=== PATIENT | male | born 1970 | race Caucasian/White ===

== ENCOUNTER 2020-12-20 11:24 | Emergency (ER) | payer OTHER, SELFPAY ==
[2020-12-20 11:33] VITALS: BP 111/74; PULSE 107; RESP 18; TEMP 36.9; O2SAT 98
--- NOTE | 2020-12-20 11:38 | ED.GENADULT ---
HPI - General Adult General Chief complaint: Nausea/Vomiting/Diarrhea Stated complaint: vomiting/fever/diarrhea Time Seen by Provider: 12/20/20 11:40 Source: patient and RN notes reviewed Mode of arrival: ambulatory Limitations: no limitations History of Present Illness HPI narrative: 50-year-old male presents to the [facility] the [facility] with complaints of fever, vomiting, diarrhea and elevated heart rate since last night. reports that fitbit read his HR 108 to 120's over night. reports a fever of 101. Has only taken pepto for the nausea and diarrhea. NO other treatment. Patient reports he is vaccined for covid. Denies abdominal pain, chest pain or SOB. Related Data Home Medications Medication Instructions Recorded Confirmed citalopram 10 mg PO DAILY 12/20/20 12/20/20 Allergies Allergy/AdvReac Type Severity Reaction Status Date / Time zolpidem Allergy Severe narcolepsy Verified 12/20/20 11:51 Review of Systems Review of Systems: All systems reviewed & are unremarkable except as noted in HPI and below Constitutional: Constitutional: Reports as per HPI and Reports fever(s) Eyes: Eyes: Reports no additional eye complaints ENT: Reports system reviewed and no additional complaints, except as documented and Denies sore throat Cardiovascular: Cardiovascular: Reports no additional cardiovascular complaints and Denies chest pain Respiratory: Respiratory: Reports no additional respiratory complaints, Denies cough and Denies dyspnea Gastrointestinal: Gastrointestinal: Reports as per HPI, Denies abdominal pain, Denies constipation, Reports diarrhea, Reports nausea and Reports vomiting Genitourinary: Genitourinary: Reports no additional male genitourinary complaints Musculoskeletal: Musculoskeletal: Reports no additional musculoskeletal complaints Integumentary/Breasts: Skin/Breast: Reports system reviewed and no additional complaints, except as docu Neurologic: Reports system reviewed and no additional complaints, except as documented Psychiatric: Psychiatric: Reports no additional psychiatric complaints Allergic/Immunologic: Allergic/Immunologic: Reports no additional allergic/immunologic complaints [facility] Past Medical History Medical History (Updated 12/20/20 @ 15:44 by Shamika Barnett) Depression with anxiety Family History Family History (Updated 12/20/20 @ 15:45 by Shamika Barnett) Father Patient's father is Mother Cancer Social History Social History Smoking status: Never smoker Second hand tobacco smoke exposure: No Alcohol intake: current Substance use: never Comments At the time of my signature, I reviewed and agree with the nursing past medical, surgical, social, and family history. There is no relevant family history pertinent to the patient complaint. Exam Const: General: healthy appearing, no acute distress and alert Nutritional Appearance: well nourished Orientation/consciousness: patient oriented x3 Limitations: no limitations HENMT: Head: normal to inspection Ears: external ears normal, TM's normal bilaterally and EAC's normal Eyes: Conjunctivae: conjunctivae normal Pupils: Equal, round and reactive pupils present Neck: Neck: normal visual inspection, no lymphadenopathy and no meningeal signs Chest: Chest palpation & inspection: normal inspection of the chest Resp: Effort & Inspection: normal respiratory effort and no use of accessory muscles Auscultation: clear to auscultation bilaterally, no crackles, no rales, no rhonchi and no wheezes Cardio: Rate: regular rate Rhythm: regular rhythm GI: Inspection: non-distended GI Palp: Yes Soft to palpation, No Tenderness to palpation present (GI), No Guarding due to palpation present (GI) and No Rebound tenderness present Auscultation: normal bowel sounds : General: Yes no CVA tenderness Back/Spine/Pelvis: Back: no CVA tenderness Skin: General skin exam: n
== END 2020-12-20 12:00 | disposition home or self-care (01) ==
PROVIDERS: Emergency Provider Nurse Practitioner; PCP Internal Medicine
DX: R11.2 Nausea with vomiting, unspecified (principal); R19.7 Diarrhea, unspecified
CPT/HCPCS: 99213; G0463

== ENCOUNTER → 2021-01-27 01:53 | Outpatient (CLI) | payer OTHER, SELFPAY ==
[2021-01-27 18:23] LABS: SARS-CoV-2 RNA PCR Negative
== END ==
PROVIDERS: Nurse Practitioner; PCP Internal Medicine; Visit Provider Physician Assistant
DX: Z20.822 Contact with and (suspected) exposure to COVID-19 (principal)
CPT/HCPCS: C9803; U0003; U0005

== ENCOUNTER 2022-09-08 07:50 | Outpatient (CLI) | payer OTHER, SELFPAY | END 2022-09-08 07:51 | disposition home or self-care (01) | LOC: ANHSURGERY 07:54 | PROVIDERS: PCP Internal Medicine; Visit Provider Surgery | DX: Z01.812 Encounter for preprocedural laboratory examination (principal); K40.90 Unilateral inguinal hernia, without obstruction or gangrene, not specified as recurrent | CPT/HCPCS: 36415; 86850; 86900; 86901 ==

== ENCOUNTER 2022-09-14 00:38 | Day surgery (SDC) | payer OTHER, SELFPAY ==
[2022-09-07 15:42] VITALS: BMI 35.2
--- NOTE | 2022-09-07 15:47 | SUR.PREOP ---
Report to the Outpatient Waiting Room, entrance under the green pavilion located off [address], at time 1000 on date 09/14/22. Planned Procedure Time: 1200. Time changes happen often and if your time is changed the preop area will call you the afternoon before. - You and your visitor will be asked to self-screen and do not enter if you have any COVID symptoms. - A mask is optional within the hospital at this time. Patients may have clear liquids (water, carbonated beverages, clear teas, apple juice) until 3 hours prior to surgery with a maximum of 20 ounces. - No food from midnight until time of surgery BEFORE 0900 AM - Infants may have breast milk until 4 hours before surgery, infant formula 6 hours prior to surgery. - Children will be allowed to drink immediately following surgery. If applicable, please bring a bottle or sippy cup to assist with drinking. Juice, water, soda, and popsicles are readily available. For infants on formula, please bring formula the day of surgery. Pacifiers are allowed. Take the following medications with a SIP of water the morning of surgery: CITALOPRAM DO NOT STOP ANY OF YOUR OTHER PRESCRIPTION MEDICATIONS PRIOR TO SURGERY ?EXCEPT THE FOLLOWING Medications to discontinue per physician ___ALINA DAY OF SURGERY Date to take last dose Please no make-up, nail yoruba, hairspray, perfume, deodorant, or body powder the day of surgery. No jewelry (including any body piercings) or valuables the day of surgery, leave them at home. Please take a shower or bath the night before, or the morning of, surgery with an antibacterial soap. Wear comfortable, loose fitting clothing. Children are encouraged to wear pajamas. USE HIBLICLENS MORNING OF SURGERY. FOLLOW DIRECTED - Jewelry must be removed prior to entering the operating room. Rings and piercings that are not removed may be cut off. - The hospital will not accept responsibility for valuables. - Please leave all valuables, including medications, at home the day of surgery. If you are going home after surgery, a licensed pile driver must drive you home. - NO public transportation without another adult if you receive anesthesia. - We recommend that an adult stay with you for 24 hours following discharge. - We also recommend that you do not drive, make important decision, drink alcoholic beverages, or take any drugs that were not prescribed by your health care provider for at least 24 hours after your discharge time. For Pediatric surgeries, we recommend two adults accompany the child home. Follow any additional instructions given to you from your surgeon. If you or anyone in your household have experienced Covid symptoms in the past week, please notify your surgeon or the nurse liaison at the phone number below for possible testing. Telephone instructions given to _PATIENT_and asked if any additional questions and then verbalized understanding. Patient advised to call surgeon office or pre surgery nurse liaison [phone] if any additional questions.
[2022-09-14] VITALS (9 sets, daily range): BP systolic 97–137; BP diastolic 50–81; PULSE 74–101; RESP 15–20; TEMP 36.4–36.5; O2SAT 92–97; BMI 35.9
--- NOTE | 2022-09-14 08:34 | WPDANESEPPF ---
Anes - Initial Pre Proc Eval Procedure: Operation Date: 09/14/22 12:00 Proposed Procedures p Robotic Assisted Laparoscopic Right Inguinal Hernia Repair with Mesh, Possible Left Inguinal Hernia Repair, Possible Open - Anthony De León MD Date/Time: 09/14/22 08:34 Surgeon: Anthony De León MD Pre Op Diagnosis: reduceable right inguinal hernia Patient Data Age: 51 Gender: M Height: 1.7 m Weight: 102.06 kg Allergies Allergy/AdvReac Type Severity Reaction Status Date / Time zolpidem Allergy Severe narcolepsy Verified 09/14/22 11:23 Home Medications Medication Instructions Recorded Confirmed Type citalopram 20 mg tablet 20 mg PO DAILY #90 tabs 07/02/22 09/14/22 Rx fexofenadine 60 mg capsule 60 mg PO DAILY 09/07/22 09/07/22 History Patient hx anesthesia problems: none Family hx anesthesia problems: none Results Review: All pre-operative results and documents have been reviewed as part of the pre-operative evaluation. [facility] Past Medical History Medical History (Updated 09/14/22 @ 08:35 by David Kenyon DO) Anxiety Bronchitis Depression with anxiety High cholesterol Irregular heart beat Surgical History Surgical History S/P wisdom tooth extraction early Family History Family History Father Patient's father is Mother Cancer Unknown Diabetes mellitus Cancer Social History Social History Smoking status: Never smoker Second hand tobacco smoke exposure: No Alcohol intake: current Substance use: never Living arrangements: with family Spiritual care concerns: No Anes - Eval Final PreProcedure Day of Procedure 09/14/22 08:34 Patient weight: obese Heart: regular rate and rhythm Lungs: clear to auscultation Airway: Mallampati scale class II Neurological: alert and oriented Last oral intake: >/= 8 hours ASA classification: II Emergent: no Anesthetic plan: proceed Anesthesia type and monitoring: general ETT and standard monitoring Results Review: All pre-operative results and documents have been reviewed as part of the pre-operative evaluation. Informed Consent: The patient's anesthetic plan and its attendant risks and benefits were discussed with the patient/family/POA. Questions were solicited and answers provided to the satisfaction of the patient/family/POA.
[2022-09-14] MEDS: LACTATED RINGERS 1,000 ML 30 ML IV CONT ×2 (11:43→18:17)
[2022-09-14] MEDS: KETOROLAC 15 MG/ML VIAL (*BKC) IV PUSH (11:51)
[2022-09-14] MEDS: ACETAMINOPHEN 500 MG TABLET 1000 MG PO (11:51)
--- NOTE | 2022-09-14 12:47 | PM.IMHP ---
H&P: HPI History of Present Illness Date/Time: 09/14/22 12:47 Chief Complaint: Right inguinal hernia Narrative: HPI Hernia denies chills or fever(s) HPI Comments Details: Ruperto is a 51 y/o male who presents to the office at the request of Dr. Bennett for evaluation of a right groin bulge. He states he first noticed this about two years ago after lifting a water heater. He states he recently had a cold and noticed more discomfort after coughing. He states the bulge is not very noticeable after laying down. He denies any difficulty with urination. ? PFSH Medical History? Bronchitis Depression with anxiety High cholesterol Surgical History? S/P wisdom tooth extraction early Family History? Father?? Patient's father is deceasedMother CancerUnknown Diabetes mellitus Cancer Social History? Smoking status:? Never smoker Second hand tobacco smoke exposure:? No Alcohol intake:? current Substance use:? never Intake Vital Signs ? 07/20/2308:28 Height 1.7 m Height (Inches) 67 Weight 107.218 kg Weight (Lbs) 236 lbs., 6 oz. BMI 37.0 BP 154/94 H Blood Pressure Location Lt brachial Position Sitting Respiration 16 Pulse 66 Pulse Source Monitor Temp 36.7 C Temp Source Tympanic Pulse Oximetry (%) 99 Oxygen Delivery Method Room Air Visit Reasons:?Hernia Allergies/Adverse Reactions zolpidem Allergy (Severe, Verified 07/20/22 09:28) narcolepsy Preferred laboratory: [facility] Pre-Planning preparation?: Yes Review of Systems Const All systems reviewed & are unremarkable except as noted in HPI and below Denies chills, Denies fever(s), Denies headache(s) and Denies weight loss Eyes Denies change in vision and Denies loss of vision ENT Reports Normal hearing present, Denies headache(s), Reports nasal discharge, Denies neck pain and Denies throat swelling Card Denies chest pain and Denies dyspnea Resp Denies cough, Denies dyspnea and Denies wheezing GI Reports abdominal pain Denies hematuria Musc Denies arthralgias, Denies joint swelling and Denies neck pain Neuro Reports Normal hearing present, Denies headache(s) and Denies loss of vision Psych Reports anxiety Aller/ Immun Denies throat swelling, Denies wheezing and Reports other (seasonal allergies) Exam Exam Const General: no acute distress and alert Orientation/Consciousness: oriented to person, oriented to place, oriented to time and patient oriented x3 [facility] Head: normocephalic and atraumatic Ears: hearing grossly normal bilaterally Face/Nose/Sinus: Normal external nose present Mouth: Normal oral and palatal mucosa present, moist mucous membranes and posterior oropharynx normal Eyes Conjunctivae/Sclera: Yes conjunctivae normal and Yes sclerae normal Pupils: Yes Equal, round and reactive pupils present EOM: EOMs intact bilaterally Neck General: Yes no JVD Lymphatic: no lymphadenopathy noted Chest Palpation/Inspection: normal inspection of the chest Resp Effort/Inspection: normal respiratory effort Auscultation: clear to auscultation bilaterally Percussion: percussion normal Cardio Rate: Yes regular rate Rhythm: regular rhythm Heart Sounds: Yes S1 normal heart sound present and Yes S2 normal heart sound present Peripheral Pulses: Peripheral pulses 2+ throughout GI Inspection: normal to inspection Auscultation: normal bowel sounds Palpation/Percussion: Yes non-tender, Yes no guarding, No Rebound tenderness present and Yes normal to percussion General: Yes normal external exam Penis: normal penis Scrotum: scrotum normal Testes: Testes normal Other: Moderate sized right inguinal hernia. Reducible. No left inguinal hernia. Skin General: normal color Neuro General: Yes oriented to person, Yes oriented to place and Yes oriente
--- NOTE | 2022-09-14 12:49 | WPDHPUPDATE1 ---
History and Physical Update Update Date/Time: 09/14/22 12:49 History and Physical has been reviewed, including an updated exam of the patient. There are NO changes in the patient's condition. Risks, benefits, and alternatives have been discussed and questions answered. Patient agrees to proceed with procedure.
[2022-09-14] MEDS: ceFAZolin 2 GM/D5W 50 ML 2 GM/50 ML BAG IVPB (13:35)
[2022-09-14] MEDS: BUPivacaine HCL 0.5% 10 ML AMP 20 ML INFILTRATE (14:10)
[2022-09-14] MEDS: LIDO 1%/EPINEPHRINE 1:100,000 50 ML VIAL 20 ML INFILTRATE (14:11)
--- NOTE | 2022-09-14 16:11 | W.PM.PROC2 ---
Procedure Note - Detailed Date of Procedure 09/14/22 Pre-op Diagnosis Reduceable right inguinal hernia Post-op Diagnosis Other (Reducible direct right inguinal hernia) Procedure Performed Robotic assisted laparoscopic right inguinal hernia repair with Bard 3D mid weight mesh Surgeon Anthony De León MD Job Estimator PIYUSH Vuong Anesthesia General Indications Patient is a 51-year-old gentleman who complained of having a bulge in the right groin region. It was painful. On examination a reducible right inguinal hernia presents now for robotic assisted laparoscopic right inguinal hernia repair with mesh. Findings Moderate-sized direct right inguinal defect containing preperitoneal fat. Description of Procedure After informed consent was obtained patient brought to the operating room was placed supine position and then general endotracheal anesthesia was administered. The bilateral abdomen and groins were then prepped and draped in usual sterile fashion. A time-out was then performed correctly identifying the patient as well as procedure to be performed. He was given perioperative IV antibiotics. I entered the abdomen left upper quadrant utilizing a 10mm Optiview port. Once inside the abdomen insufflated to adequate pneumoperitoneum of 15 mmHg of CO2. I then visualized the bilateral groin regions and there was no evidence of a left inguinal hernia. On the right side there is a direct defect containing what appeared to be some preperitoneal fat. I then placed additional trocar ports across the mid abdomen. This is done under direct visualization. The Tha robot was then brought to the patient's bedside the robotic arms were docked to the robotic ports. Robotic instruments advanced into the abdomen under direct visualization and I scrubbed out the procedure sat down the robotic console to perform the dissection robotically. I started my preperitoneal flap laterally anterior medial to the right anterior superior iliac spine and brought across the lower abdomen across the right median umbilical ligament. Dissection was carried in this preperitoneal space distally until I reached the internal ring laterally and medially when I encountered the pubic tubercle on the right. I identified the inferior epigastric vessels and reduced the preperitoneal fat and peritoneum out of the direct defect utilizing robotic hook cautery. Once this was done I then further dissected the peritoneal flap proximally up onto the psoas muscle. The vas deferens and testicular vessels in the cord were dissected out circumferentially without injury. Was a small cord lipoma which was dissected free the other cord structures and resected and removed from the abdomen. At this point I then closed the direct defect utilizing a 2-0 absorbable V lock suture. Then measured the space and chose a 17cm in length by 12cm in width extra large piece of Bard mid weight mesh oriented for the right side. Is placed into the abdomen and spread out in the dissected space covering both the direct and indirect spaces as well as the femoral space. I dissected below the pubic tubercle into the space the rectus were couple cm in the edge of the mesh was placed down in the space of Retzius. Mesh laid out very nicely without any tension. I then secured the mesh to tissues around the pubic tubercle utilizing 2-0 Vicryl suture. Laterally was secured to the muscle anterior medial to the right anterior suprailiac spine. Was then secured also to the area where the direct defect was closed with a 2-0 Vicryl suture. I then proceeded to close the peritoneal flap utilizing a running 2-0 absorbable V lock suture. This excluded the mesh from the intra-abdominal viscera. A small hole in the peritoneum was then closed utilizing 2-0 Vicryl suture placed in a figure-eight fashion. I then checked and there was no evidence of any bowel injury. There is no bleeding. I then had the it robotic instruments removed from the abdom
[2022-09-14] MEDS: oxyCODONE HCL (*CRX) 5 MG TAB IR PO (17:37)
[2022-09-14] MEDS: ONDANSETRON INJ 4 MG/2 ML VIAL IV PUSH (17:39)
--- NOTE | 2022-09-14 17:44 | SUR.PHASEII ---
PT VOMITED 2 MIN AFTER TAKING OXYCODONE. PT SAID HE HAS NEVER HAD OXYCODONE BEFORE THAT HE KNOWS OF
== END 2022-09-14 18:51 | disposition home or self-care (01) ==
PROVIDERS: PCP Internal Medicine; Visit Provider Surgery
PROC: 8E0Y4CZ Robotic Assisted Procedure of Lower Extremity, Percutaneous Endoscopic Approach (ICD-10-PCS; CPT 49650; principal; 2022-09-14 12:00)
DX: K40.90 Unilateral inguinal hernia, without obstruction or gangrene, not specified as recurrent (principal); F41.8 Other specified anxiety disorders; E66.9 Obesity, unspecified; Z68.35 Body mass index [BMI] 35.0-35.9, adult
CPT/HCPCS: 49650; S2900; 36415; 86850; 86900; 86901; A9270; C1781; J0690; J1100; J1170; J1885; J2250; J2405; J2704; J3010; J7030; J7120

== ENCOUNTER 2022-10-14 00:46 | Day surgery (SDC) | payer OTHER, SELFPAY ==
[2022-10-01 10:30] VITALS: BMI 35.3
--- NOTE | 2022-10-13 13:39 | PM.HPGS ---
History of Present Illness History of Present Illness Consent: Risks, benefits, and alternatives have been discussed and questions answered. Patient agrees to proceed with procedure. Chief complaint: neoplasm screening Narrative: Ruperto Pickett is a 51 year old male referred for colon cancer screening. Review of Systems Review of Systems: All systems reviewed & are unremarkable except as noted in HPI and below PMFSH Past Medical History Medical History Anxiety Bronchitis Depression with anxiety High cholesterol Irregular heart beat Surgical History Surgical History H/O inguinal hernia repair robotic assisted laparoscopic RIH re w/ mesh, poss LIH re, poss open 09/07/22 S/P wisdom tooth extraction early Family History Family History Father Patient's father is Mother Cancer Unknown Diabetes mellitus Cancer Social History Social History Smoking status: Never smoker Second hand tobacco smoke exposure: No Alcohol intake: current Drinks per week: 1 Substance use: never Substance use type: does not use Living arrangements: with family Spiritual care concerns: No Meds Home Medications and Allergies Home Medications Medication Instructions Recorded Confirmed Type citalopram 20 mg tablet 20 mg PO DAILY #90 tabs 07/02/22 10/01/22 Rx fexofenadine 60 mg capsule 60 mg PO DAILY 09/07/22 10/01/22 History Allergies Allergy/AdvReac Type Severity Reaction Status Date / Time zolpidem Allergy Severe narcolepsy Verified 10/14/22 06:23 Exam Resp: Auscultation: clear to auscultation bilaterally Cardio: Rate: regular rate Rhythm: regular rhythm GI: GI Palp: Yes Soft to palpation and No Tenderness to palpation present (GI) Assessment and Plan Assessment and plan (1) Colon cancer screening: Code(s): Z12.11 - Encounter for screening for malignant neoplasm of colon Status: Acute Assessment and Plan: Colonoscopy with possible biopsy or polypectomy or cautery or injection of substances.
[2022-10-14 06:25] VITALS: BP 119/75; PULSE 79; RESP 18; TEMP 36.2; O2SAT 98
[2022-10-14] MEDS: LACTATED RINGERS 1,000 ML 150 ML IV CONT (06:38)
--- NOTE | 2022-10-14 07:13 | WPDANESEPPF ---
Anes - Initial Pre Proc Eval Procedure: Operation Date: 10/14/22 07:30 Proposed Procedures p Screening Colonoscopy - Feroz Jacques MD Date/Time: 10/14/22 07:13 Surgeon: Feroz Jacques MD Pre Op Diagnosis: neoplasm screening Patient Data Age: 51 Gender: M Height: 1.7 m Weight: 103.1 kg Last Vital Signs Temp 97.1 F L 10/14/22 06:25 Pulse 79 10/14/22 06:25 Resp 18 10/14/22 06:25 BP 119/75 10/14/22 06:25 Pulse Ox 98 10/14/22 06:25 O2 Del Method Room Air 10/14/22 06:25 Allergies Allergy/AdvReac Type Severity Reaction Status Date / Time zolpidem Allergy Severe narcolepsy Verified 10/14/22 06:23 Home Medications Medication Instructions Recorded Confirmed Type citalopram 20 mg tablet 20 mg PO DAILY #90 tabs 07/02/22 10/01/22 Rx fexofenadine 60 mg capsule 60 mg PO DAILY 09/07/22 10/01/22 History Patient hx anesthesia problems: none Family hx anesthesia problems: none Results Review: All pre-operative results and documents have been reviewed as part of the pre-operative evaluation. [facility] Past Medical History Medical History Anxiety Bronchitis Depression with anxiety High cholesterol Irregular heart beat Surgical History Surgical History H/O inguinal hernia repair robotic assisted laparoscopic RIH re w/ mesh, poss LIH re, poss open 09/07/22 S/P wisdom tooth extraction early Family History Family History Father Patient's father is Mother Cancer Unknown Diabetes mellitus Cancer Social History Social History Smoking status: Never smoker Second hand tobacco smoke exposure: No Alcohol intake: current Drinks per week: 1 Substance use: never Substance use type: does not use Living arrangements: with family Spiritual care concerns: No Anes - Eval Final PreProcedure Day of Procedure 07/13/23 07:13 Patient weight: obese Heart: regular rate and rhythm Lungs: clear to auscultation Airway: Mallampati scale class II Neurological: alert and oriented Last oral intake: >/= 8 hours ASA classification: II Emergent: no Anesthetic plan: proceed Anesthesia type and monitoring: general GIVS and standard monitoring Results Review: All pre-operative results and documents have been reviewed as part of the pre-operative evaluation. Informed Consent: The patient's anesthetic plan and its attendant risks and benefits were discussed with the patient/family/POA. Questions were solicited and answers provided to the satisfaction of the patient/family/POA.
[2022-10-14 07:45] VITALS: BP 102/63; PULSE 70; RESP 14; O2SAT 94
[2022-10-14 07:55] VITALS: BP 127/86; PULSE 78; RESP 18; O2SAT 95
[2022-10-14 08:05] VITALS: BP 125/83; PULSE 72; RESP 18; O2SAT 94
== END 2022-10-14 08:12 | disposition home or self-care (01) ==
PROVIDERS: PCP Internal Medicine; Visit Provider Internal Medicine Gastroenterology
PROC: 0DJD8ZZ Inspection of Lower Intestinal Tract, Via Natural or Artificial Opening Endoscopic (ICD-10-PCS; CPT 45378; principal; 2022-10-14 07:30)
DX: Z12.11 Encounter for screening for malignant neoplasm of colon (principal); F41.8 Other specified anxiety disorders; E66.9 Obesity, unspecified; Z68.35 Body mass index [BMI] 35.0-35.9, adult
CPT/HCPCS: 45378; J2704; J7120

== ENCOUNTER 2023-06-08 15:00 | Outpatient (CLI) | payer OTHER, SELFPAY ==
--- NOTE | ~2023-06-08 | XR_ITS ---
EXAMINATION: XR shoulder LT min 2V DATE: 06/08/2023 15:14 INDICATION: Left shoulder pain. TECHNIQUE: 4 views of left shoulder were obtained. COMPARISON: None. FINDINGS: Bone alignment is normal. No fracture. Glenohumeral joint is normal. There is mild acromioc lavicular joint osteoarthritis. IMPRESSION: 1. Mild left acromioclavicular joint osteoarthritis. Reviewed, dictated and finalized at location E. ELL TESTER
== END 2023-06-08 15:01 | disposition home or self-care (01) ==
PROVIDERS: PCP Internal Medicine; Visit Provider Internal Medicine
DX: M25.512 Pain in left shoulder (principal); M19.012 Primary osteoarthritis, left shoulder
CPT/HCPCS: 73030

== ENCOUNTER 2023-08-09 08:46 | Outpatient (CLI) | payer OTHER, SELFPAY ==
--- NOTE | ~2023-08-09 | US_ITS ---
Limited Abdominal Sonogram: Real-time sonographic imaging of the right upper quadrant was performed. Clinical History: Abdominal pain Findings: The liver appears normal with no evidence of mass lesion or bile duct dilatation. Main por juan vein demonstrates normal direction of flow. The gallbladder is well distended, and demonstrates a 9 mm gallstone. No gallbladder wall thickening evident. The common bile duct measures 5 mm. The vis ualized pancreas, aorta, and IVC are unremarkable. Impression: Cholelithiasis. Reviewed, dictated and finalized at location M. Impression: Cholelithiasis.
== END 2023-08-09 08:47 | disposition home or self-care (01) ==
LOC: ANHIMG 08:47
PROVIDERS: PCP Internal Medicine; Visit Provider Physician Assistant
DX: K80.20 Calculus of gallbladder without cholecystitis without obstruction (principal)
CPT/HCPCS: 76705

== ENCOUNTER 2023-09-09 07:58 | Outpatient (CLI) | payer OTHER, SELFPAY ==
--- NOTE | 2023-09-09 08:08 | ECG_ITS ---
[facility] [address] Test Date: 2023-09-09 Pat Name: Ruperto Pickett Department: Room: Gender: Kitchen And Counter Worker: : 1970 Requested By: David Higgins Order Number: [id number] Yordy MD: Yunior Parish M.D. Measurements Intervals [place] Rate: 71 P: 17 OH: 155 QRS: 10 QRSD: 90 T: 11 QT: 369 QTc: 404 Interpretive Statements SINUS RHYTHM NORMAL ELECTROCARDIOGRAM No previous ECG available for comparison Electronically Signed On 09-09-2023 09:12:50 CDT by Yunior Parish M.D.
[2023-09-09 11:37] LABS: Alanine Aminotransferase 31 U/L (6-50); Albumin Level 4.3 g/dL (3.5-5.1); Alkaline Phosphatase 76 U/L (38-126); Amylase 152 U/L (30-110); Aspartate Amino Transferase 42 U/L (17-59); Bilirubin,Total 0.5 mg/dL (0.2-1.3); Lipase 339 U/L (23-300)
== END 2023-09-09 07:59 | disposition home or self-care (01) ==
LOC: ANHSURGERY 08:04
PROVIDERS: PCP Internal Medicine; Visit Provider Surgery
DX: K80.20 Calculus of gallbladder without cholecystitis without obstruction (principal); Z01.818 Encounter for other preprocedural examination
CPT/HCPCS: 36415; 80076; 82150; 83690; 86850; 86900; 86901; 93005

== ENCOUNTER 2023-09-14 00:40 | Day surgery (SDC) | payer OTHER, SELFPAY ==
[2023-09-05 14:06] VITALS: BMI 33.5
--- NOTE | 2023-09-05 14:12 | PC.NURSE ---
Report to the Outpatient Waiting Room, entrance under the green pavilion located off [facility], at time _0730_ on date _[id number]_. Planned Procedure Time: 0930_. Time changes happen often and if your time is changed the preop area will call you the afternoon before. - You and your visitor will be asked to self-screen and do not enter if you have any COVID symptoms. - A mask is optional within the hospital at this time. Patients may have clear liquids (water, carbonated beverages, clear teas, apple juice) until 3 hours prior to surgery with a maximum of 20 ounces. - No food from midnight until time of surgery Take the following medications with a SIP of water the morning of surgery: ___Citalopram DO NOT STOP ANY OF YOUR OTHER PRESCRIPTION MEDICATIONS PRIOR TO SURGERY ?EXCEPT THE FOLLOWING Medications to discontinue per physician Multivitamin Date to take last [id number]__[id number] Please no make-up, nail sami, hairspray, perfume, deodorant, or body powder the day of surgery. No jewelry (including any body piercings) or valuables the day of surgery, leave them at home. Please take a shower or bath the night before, or the morning of, surgery with an antibacterial soap. Wear comfortable, loose fitting clothing. - Jewelry must be removed prior to entering the operating room. Rings and piercings that are not removed may be cut off. - The hospital will not accept responsibility for valuables. - Please leave all valuables, including medications, at home the day of surgery. If you are going home after surgery, a licensed courtesy driver must drive you home. - NO public transportation without another adult if you receive anesthesia. - We recommend that an adult stay with you for 24 hours following discharge. - We also recommend that you do not drive, make important decision, drink alcoholic beverages, or take any drugs that were not prescribed by your health care provider for at least 24 hours after your discharge time. Follow any additional instructions given to you from your surgeon. If you or anyone in your household have experienced Covid symptoms in the past week, please notify your surgeon or the nurse liaison at the phone number below for possible testing. Telephone instructions given to __Ruperto___and asked if any additional questions and then verbalized understanding. Patient advised to call surgeon office or pre surgery nurse liaison [phone] if any additional questions.
[2023-09-14] VITALS (9 sets, daily range): BP systolic 112–151; BP diastolic 59–92; PULSE 84–105; RESP 10–16; TEMP 36.4–37.2; O2SAT 91–99
[2023-09-14] MEDS: LACTATED RINGERS 1,000 ML 30 ML IV CONT ×2 (06:45→08:42)
[2023-09-14] MEDS: INDOCYANINE GREEN 25 MG VIAL WITH DILUENT 3.75 MG IV PUSH (06:50)
[2023-09-14] MEDS: KETOROLAC 15 MG/ML VIAL (*BKC) IV PUSH (07:00)
[2023-09-14] MEDS: ACETAMINOPHEN 500 MG TABLET 1000 MG PO (07:00)
--- NOTE | 2023-09-14 07:15 | PM.IMHP ---
H&P: HPI History of Present Illness Date/Time: 09/14/23 07:15 Chief Complaint: symptomatic cholelithiasis Narrative: 52 yo man presents for cholecystectomy. He reports no changes since last seen in office. Review of Systems Review of Systems: All systems reviewed & are unremarkable except as noted in HPI and below Constitutional: Constitutional: Denies chills, Denies fever(s), Denies headache(s) and Denies weight loss Eyes: Eyes: Denies change in vision ENT: Denies dizziness, Denies headache(s), Denies neck mass and Denies throat swelling Cardiovascular: Cardiovascular: Denies chest pain, Denies lightheadedness and Denies dyspnea Respiratory: Respiratory: Denies cough, Denies dyspnea and Denies wheezing Gastrointestinal: Gastrointestinal: Denies abdominal pain, Denies change in bowel habits, Denies nausea and Denies vomiting Genitourinary: Genitourinary: Denies hematuria and Denies dysuria Musculoskeletal: Musculoskeletal: Reports as per HPI Integumentary/Breasts: Skin/Breast: Reports as per HPI Neurologic: Denies dizziness and Denies headache(s) Allergic/Immunologic: Allergic/Immunologic: Denies throat swelling and Denies wheezing [facility] Past Medical History Medical History Anxiety Bronchitis Depression with anxiety High cholesterol Irregular heart beat Surgical History Surgical History H/O inguinal hernia repair robotic assisted laparoscopic RIH re w/ mesh, poss LIH re, poss open 09/07/22 S/P wisdom tooth extraction early Family History Family History Father Patient's father is Mother Cancer Unknown Diabetes mellitus Cancer Social History Social History Smoking status: Never smoker Second hand tobacco smoke exposure: No Alcohol intake: current Drinks per week: 1 Substance use: never Substance use type: does not use Lack of Transportation: No Lack of Food: Never True Current Housing: I Have Housing Concerned About Future Housing: No Difficulty Paying Gas/Electric Bills: No Difficulty Paying for Meds: No Currently Unemployed: No Education: Master's Degree or Higher Difficulty w/ Childcare or Family Care: No Living arrangements: with family Spiritual care concerns: No Meds Home Medications and Allergies Home Medications Medication Instructions Recorded Confirmed Type fexofenadine 60 mg capsule 60 mg PO DAILY 09/07/22 09/05/23 History lorazepam 0.5 mg tablet 0.5 mg PO DAILY PRN anxiety #30 11/19/22 09/05/23 Rx tabs citalopram 40 mg tablet 40 mg PO DAILY #90 tabs 05/30/23 09/05/23 Rx multivitamin 1 tablet PO DAILY 09/05/23 09/05/23 History Allergies Allergy/AdvReac Type Severity Reaction Status Date / Time zolpidem Allergy Severe narcolepsy Verified 08/12/23 08:55 Exam Const: General: no acute distress and alert Orientation/consciousness: patient oriented x3 HENMT: Head: normocephalic and atraumatic Ears: hearing grossly normal bilaterally Face/Nose/Sinus: Normal nares present Mouth: Yes Normal oral and palatal mucosa present Eyes: Periorbital: periorbital findings normal Sclera: sclerae normal EOM: EOMs intact bilaterally Neck: Neck: normal visual inspection, no lymphadenopathy and trachea midline Chest: Chest palpation & inspection: normal inspection of the chest Resp: Effort & Inspection: normal respiratory effort Auscultation: clear to auscultation bilaterally Cardio: Jugular venous distension: no JVD Rate: regular rate Rhythm: regular rhythm Heart sounds: S1 normal heart sound present and S2 normal heart sound present Peripheral pulses: Peripheral pulses 2+ throughout GI: Inspection: normal to inspection GI Palp: Yes Soft to palpation, No Tenderness to palpation pres
--- NOTE | 2023-09-14 07:18 | WPDHPUPDATE1 ---
History and Physical Update Update Date/Time: 09/14/23 07:18 History and Physical has been reviewed, including an updated exam of the patient. There are NO changes in the patient's condition. Risks, benefits, and alternatives have been discussed and questions answered. Patient agrees to proceed with procedure.
--- NOTE | 2023-09-14 07:32 | WPDANESEPPF ---
Anes - Initial Pre Proc Eval Procedure: Operation Date: 09/14/23 07:30 Proposed Procedures p Laparoscopic Cholecystectomy, Davinci Assisted - Jr Rueda DO Date/Time: 09/14/23 07:32 Surgeon: Jr Rueda DO Pre Op Diagnosis: Sym Cholelithiasis Patient Data Age: 52 Gender: M Height: 1.73 m Weight: 100 kg Allergies Allergy/AdvReac Type Severity Reaction Status Date / Time zolpidem Allergy Severe narcolepsy Verified 08/12/23 08:55 Home Medications Medication Instructions Recorded Confirmed Type fexofenadine 60 mg capsule 60 mg PO DAILY 09/07/22 09/05/23 History lorazepam 0.5 mg tablet 0.5 mg PO DAILY PRN anxiety #30 11/19/22 09/05/23 Rx tabs citalopram 40 mg tablet 40 mg PO DAILY #90 tabs 05/30/23 09/05/23 Rx multivitamin 1 tablet PO DAILY 09/05/23 09/05/23 History Patient hx anesthesia problems: none Family hx anesthesia problems: none Results Review: All pre-operative results and documents have been reviewed as part of the pre-operative evaluation. [facility] Past Medical History Medical History Anxiety Bronchitis Depression with anxiety High cholesterol Irregular heart beat Surgical History Surgical History H/O inguinal hernia repair robotic assisted laparoscopic RIH re w/ mesh, poss LIH re, poss open 09/07/22 S/P wisdom tooth extraction early Family History Family History Father Patient's father is Mother Cancer Unknown Diabetes mellitus Cancer Social History Social History Smoking status: Never smoker Second hand tobacco smoke exposure: No Alcohol intake: current Drinks per week: 1 Substance use: never Substance use type: does not use Lack of Transportation: No Lack of Food: Never True Current Housing: I Have Housing Concerned About Future Housing: No Difficulty Paying Gas/Electric Bills: No Difficulty Paying for Meds: No Currently Unemployed: No Education: Master's Degree or Higher Difficulty w/ Childcare or Family Care: No Living arrangements: with family Spiritual care concerns: No Anes - Eval Final PreProcedure Day of Procedure 09/14/23 07:32 Patient weight: overweight Heart: regular rate and rhythm Lungs: clear to auscultation Airway: Mallampati scale class II Neurological: alert and oriented Last oral intake: >/= 8 hours ASA classification: II Emergent: no Anesthetic plan: proceed Anesthesia type and monitoring: general ETT and standard monitoring Results Review: All pre-operative results and documents have been reviewed as part of the pre-operative evaluation. Pt active, recently [place] [facility] [place], [place] or sob. Informed Consent: The patient's anesthetic plan and its attendant risks and benefits were discussed with the patient/family/POA. Questions were solicited and answers provided to the satisfaction of the patient/family/POA.
[2023-09-14] MEDS: ceFAZolin 2 GM/D5W 50 ML 2 GM/50 ML BAG IVPB (07:34)
[2023-09-14] MEDS: BUPIVACAINE/EPINEPHRINE 0.5% 10 ML VIAL 30 ML INFILTRATE (08:03)
--- NOTE | 2023-09-14 08:38 | W.PM.PROC2 ---
Procedure Note - Detailed Date of Procedure 09/14/23 Pre-op Diagnosis Symptomatic Cholelithiasis Post-op Diagnosis Same Procedure Performed 1. Laparoscopic cholecystectomy with cholangiography, da Tha assisted 2. Interpretation of cholangiography Surgeon Jr Rueda DO Anesthesia General and Local (0.5% bupivacaine) Indications This is a 52-year-old man who presented with intermittent right upper quadrant pain over the past couple months. He had noticed this after eating fried or greasy foods. He underwent gallbladder ultrasound as an outpatient on 08/09/2023 this showed evidence of cholelithiasis. Discussions were made with the patient about treatment options and decision was made to proceed with robotic assisted laparoscopic cholecystectomy with cholangiography. Findings The patient received 1.5 mL of indocyanine green intravenously preoperatively. Robotic assisted Laparoscopic cholecystectomy with cholangiography was performed. Near infrared fluorescence imaging was used to identify the biliary anatomy. The cystic duct was clearly identified and no other biliary structures were near this area. The critical view of safety was then created and the gallbladder was then removed. I did not identify any definite stones within the gallbladder on palpation, but the gallbladder was not opened up to inspect. The gallbladder was sent to the lab for pathology. Description of Procedure Procedure as well as risks, benefits, and alternatives were discussed with the patient. Written consent was obtained and placed in chart prior to procedure. 1.5 mL of indocyanine green was given intravenously in preop. Patient was brought back to surgical suite. She was placed supine on operating table. Time-out was done to confirm patient and procedure. She was then intubated by the anesthesia department. Her abdomen was then prepped and draped in sterile fashion using chlorhexidine prep. 0.5% bupivacaine was infiltrated locally at the site of each port placement. An 8 mm incision was made just superior to the umbilicus and a 5 mm Optiview trocar was then advanced through the abdominal layers under direct visualization. Once inside the abdominal cavity, carbon dioxide insufflation was used to create a pneumoperitoneum. The camera was inserted and the abdomen was inspected. No mediated abnormalities were noted. The patient was placed in 10? reverse Trendelenburg position and rotated 10? to the left. Two 8 mm incisions were made in the right lateral abdomen and 2 8 mm trocars were inserted under direct visualization. A 12 mm incision was made in the left lateral abdomen and a 12 mm trocar was inserted under direct visualization. The 5 mm Optiview trocar was then removed and another 8 mm trocar was inserted in its place. The robotic arms were then brought up to the patient's bedside and secured to each port. The camera and instruments were inserted. I then moved over to the robotic consult to take control of the camera and instruments. The gallbladder was grasped at the fundus and retracted cephalad. The infundibulum of the gallbladder was then grasped and retracted laterally. Hook electrocautery was then used to carefully dissect around the neck of the gallbladder. The cystic duct was identified and a window was created around it using hook electrocautery. The cystic artery was also identified and a window was created behind it using hook electrocautery. Critical view of safety was identified visualizing the cystic duct running directly into the neck of the gallbladder and the cystic artery running directly into the wall the gallbladder. The camera view was switched to firefly mode and the indocyanine green within the gallbladder and cystic duct was clearly visualized. No other structures were noted running into this region and there did not appear to be any obstruction of the cystic duct impeding flow of bile into the gallbladder. The camera mode was switched
== END 2023-09-14 10:40 | disposition home or self-care (01) ==
PROVIDERS: PCP Internal Medicine; Visit Provider Surgery
PROC: 0FT44ZZ Resection of Gallbladder, Percutaneous Endoscopic Approach (ICD-10-PCS; CPT 47562; principal; 2023-09-14 07:30)
DX: K80.10 Calculus of gallbladder with chronic cholecystitis without obstruction (principal); F41.8 Other specified anxiety disorders
CPT/HCPCS: 47563; 74300; 36415; 80076; 82150; 83690; 86850; 86900; 86901; 88304; 93005; A9270; J0690; J1100; J1170; J1200; J1596; J1885; J2250; J2371; J2405; J2704; J3010; J7030; J7120

== ENCOUNTER 2024-10-01 09:19 | Outpatient (CLI) | payer OTHER, SELFPAY ==
--- NOTE | ~2024-10-01 | US_ITS ---
Limited Abdominal Sonogram: Real-time sonographic imaging of the right upper quadrant was performed. Clinical History: Left upper quadrant pain Findings: The liver appears echogenic, with no evidence of mass lesion or bile duct dilatation. Main portal vein demonstrates normal direction of flow. The gallbladder is absent, compatible prior ander cystectomy. The common bile duct measures 4 mm. The visualized pancreas, aorta, and IVC are unremark able. Spleen unremarkable. Impression: Diffuse fatty infiltration of the liver. Status post cholecystectomy. Reviewed, dictated and finalized at location . Impression: Diffuse fatty infiltration of the liver. Status post cholecystectomy.
== END 2024-10-01 09:20 | disposition home or self-care (01) ==
PROVIDERS: PCP Nurse Practitioner Family; Visit Provider Nurse Practitioner Family
DX: K76.0 Fatty (change of) liver, not elsewhere classified (principal); Z90.49 Acquired absence of other specified parts of digestive tract
CPT/HCPCS: 76705

== ENCOUNTER 2025-02-15 03:44 | Day surgery (SDC) | payer OTHER, SELFPAY ==
[2025-02-08 15:22] VITALS: BMI 35.3
--- NOTE | 2025-02-08 15:30 | PC.NURSE ---
[facility] has started construction of its new state of the art ER which will open Spring 2026. With this, we anticipate parking may be a challenge for some our surgical patients and families. Parking spaces are limited but are available for all Surgical, obstetrics, and ER patients sharing this lot. If you arrive and find you are having a hard time finding a parking space, please note that we understand the challenges, please drive around the hospital and park near Hospital Entrance 1. When you enter this entrance, you can ask a volunteer to direct or take you back to the surgical waiting area to check in. We appreciate everyone?s understanding of these expected challenges while we build for your future. Report to the Outpatient Waiting Room, entrance under the green pavilion located off [address], at time _1230_ on date _[id number]_. Planned Procedure Time: _230pm_.? Time changes happen often and if your time is changed the preop area will call you the afternoon before. - You and your visitor will be asked to self-screen and do not enter if you have any COVID symptoms. Please call surgeon if you need to reschedule. - A mask is optional within the hospital at this time. Patients may have clear liquids (water, carbonated beverages, clear teas, apple juice) until 3 hours prior to surgery with a maximum of 20 ounces. (patient quoted this to me as his instructions from the office so I told him he was fine following their instructions instead of the NPO after midnight it states on our orders.) - No food from midnight until time of surgery and no smoking, or chewing tobacco (or any form of nicotine). No chewing gum, candy or mints. Take only the following medications with a SIP of water on the morning of surgery: ___Citalopram___ DO NOT STOP ANY OF YOUR OTHER PRESCRIPTION MEDICATIONS PRIOR TO SURGERY EXCEPT THE FOLLOWING Hold all vitamins and supplements for 3 days per anesthesiologist. Medications to discontinue per physician Date to take last dose Please no make-up, nail kyrgyz, hairspray, perfume, deodorant, or body powder the day of surgery.? No jewelry (including any body piercings) or valuables the day of surgery, leave them at home.? Please take a shower or bath the night before, or the morning of, surgery with an antibacterial soap.? Wear comfortable, loose fitting clothing.? - Jewelry must be removed prior to entering the operating room.? Rings and piercings that are not removed may be cut off. - The hospital will not accept responsibility for valuables.? - Please leave all valuables, including medications, at home the day of surgery. If you are going home after surgery, a licensed bulk tank driver must drive you home.? - NO public transportation without another adult if you receive anesthesia. - We recommend that an adult stay with you for 24 hours following discharge. - We also recommend that you do not drive, make important decision, drink alcoholic beverages, or take any drugs that were not prescribed by your health care provider for at least 24 hours after your discharge time. Follow any additional instructions given to you from your surgeon. Telephone instructions given to __Ruperto___and asked if any additional questions and then verbalized understanding. Patient advised to call surgeon office or pre surgery nurse liaison [phone] if any additional questions.
[2025-02-15 12:36] VITALS: BMI 35.4
[2025-02-15 12:40] VITALS: BP 133/80; PULSE 77; RESP 18; TEMP 36.9; O2SAT 97
[2025-02-15] MEDS: LACTATED RINGERS 1,000 ML 30 ML IV CONT (13:10)
[2025-02-15] MEDS: KETOROLAC 15 MG/ML VIAL (*BKC) IV PUSH (13:13)
[2025-02-15] MEDS: ACETAMINOPHEN 500 MG TABLET 1000 MG PO (13:13)
--- NOTE | 2025-02-15 13:43 | P.PNAN_ITS ---
Anes - Initial Pre Proc Eval Procedure: Operation Date: 02/15/25 14:30 Proposed Procedures p Rectal Examination Under Anesthesia, Incision and Drainage of Perirectal Abscess - Jr Rueda DO Date/Time: 02/15/25 13:43 Surgeon: Jr Rueda DO Pre Op Diagnosis: perirectal abscess Patient Data Age: 54 Gender: M Height: 1.7 m Weight: 102.8 kg Last Vital Signs Temp 36.9 C 02/15/25 12:40 Pulse 77 02/15/25 12:40 Resp 18 02/15/25 12:40 BP 133/80 02/15/25 12:40 Pulse Ox 97 02/15/25 12:40 O2 Del Method Room Air 02/15/25 12:40 Allergies Allergy/AdvReac Type Severity Reaction Status Date / Time zolpidem Allergy Severe narcolepsy Verified 02/15/25 13:23 Home Medications ?Medication ?Instructions ?Recorded ?Confirmed ?Type multivitamin 1 tablet PO DAILY 09/05/23 1 04/17/24 History citalopram 40 mg tablet 40 mg PO DAILY #90 tabs 09/2602/15/25 Rx fexofenadine-pseudoephedrine ER 1 tablet PO DAILY 09/2602/15/25 History 180 mg-240 mg tablet,ext.release 24 hr (Dania-D 24 Hour) Patient hx anesthesia problems: none Family hx anesthesia problems: none Results Review: All pre-operative results and documents have been reviewed as part of the pre- operative evaluation. [facility] Past Medical History Medical History Mass of buttock VERONICA on CPAP Anorectal anomaly BMI 39.0-39.9,adult VERONICA (obstructive sleep apnea) Dyspepsia Hypersomnia Snoring Encounter to establish care Elevated glucose Family history of ovarian cancer Family history of breast cancer Left upper quadrant pain Anxiety Irregular heart beat High cholesterol Bronchitis Depression with anxiety Surgical History Surgical History Hx laparoscopic cholecystectomy Dr Jr Rueda 09/14/23 H/O inguinal hernia repair robotic assisted laparoscopic RIH re w/ mesh, poss LIH re, poss open 09/07/22 S/P wisdom tooth extraction early Family History Family History Father Patient's father is Mother Cancer Unknown Diabetes mellitus Cancer Social History Social History Smoking status: Never smoker Second hand tobacco smoke exposure: No Alcohol intake: current Drinks per week: 1 Substance use: never Substance use type: does not use Lack of Transportation: No Lack of Food: Never True Current Housing: I Have Housing Concerned About Future Housing: No Difficulty Paying Gas/Electric Bills: No Difficulty Paying for Meds: No Currently Unemployed: No Education: Master's Degree or Higher Difficulty w/ Childcare or Family Care: No Living arrangements: with family Spiritual care concerns: No Anes - Eval Final PreProcedure Day of Procedure 02/15/25 13:43 Patient weight: obese Heart: regular rate and rhythm Lungs: clear to auscultation Airway: Mallampati scale class II Neurological: alert and oriented Last oral intake: >/= 8 hours ASA classification: III Emergent: no Anesthetic plan: proceed Anesthesia type and monitoring: general LMA and standard monitoring Results Review: All pre-operative results and documents have been reviewed as part of the pre- operative evaluation. Informed Consent: The patient's anesthetic plan and its attendant risks and benefits were discussed with the patient/family/POA. Questions were solicited and answers provided to the satisfaction of the patient/family/POA.
--- NOTE | 2025-02-15 14:26 | WPDHPUPDATE1 ---
History and Physical Update Update Date/Time: 02/15/25 14:26 History and Physical has been reviewed, including an updated exam of the patient. There are NO changes in the patient's condition. Risks, benefits, and alternatives have been discussed and questions answered. Patient agrees to proceed with procedure.
[2025-02-15] MEDS: ceFAZolin 2 GM in SODIUM CHLORIDE 0.9% IV 50 ML 100 ML IVPB (14:42)
[2025-02-15] MEDS: BUPIVACAINE/EPINEPHRINE 0.5% 50 ML VIAL INFILTRATE (15:02)
[2025-02-15 15:14] VITALS: BP 89/54; PULSE 85; RESP 14
--- NOTE | 2025-02-15 15:17 | P.OP_ITS ---
Procedure Note - Detailed Date of Procedure 02/15/25 Pre-op Diagnosis perirectal abscess Post-op Diagnosis Other (Resolving perirectal abscess or cyst) Procedure Performed Rectal exam under anesthesia Surgeon Jr Rueda, DO Anesthesia MAC and Local (0.5% bupivacaine with epinephrine) Indications This is a 54-year-old man who presented with perirectal pain and swelling for the past couple months. He was started on antibiotics by his PCPs office but this did not seem to help very much with the swelling. On exam last week he was found to have an area deep fluctuance and tenderness to palpation in the left perirectal region. The patient now presents for rectal exam under anesthesia with incision and drainage of perirectal abscess. He did state in preop that the swelling has gone down somewhat since last seen. Findings Rectal exam under anesthesia was performed. I was not able to identify a clear area of persistent abscess in the perirectal region. There appeared to be a possible small deeper mobile cyst or lymph node measuring at most 5-10 mm. I attempted aspiration of this area to see if it was a cyst but I was not able to aspirate any fluid. A [employer] anoscope was inserted to inspect the anal rectal canal. No internal abnormalities were noted. Decision was made not to perform an incision and drainage over this area since it appeared mostly resolved. Description of Procedure Procedure as well as risks, benefits, and alternatives were discussed with the patient. Written consent was obtained and placed in chart prior to procedure. Patient was brought back to surgical suite. He was placed supine on operating table. Time-out was done to confirm patient and procedure. IV sedation was then administered by the anesthesia department. He was then placed in dorsal lithotomy position in stirrups and his perirectal region was prepped and draped in sterile fashion using Betadine prep. Digital rectal exam was initially performed and the perianal skin was carefully examined. In the left lateral region there appeared to be maybe a small 5-10 mm cystic structure deep within the perirectal tissue and somewhat closer to the ischium. This appeared slightly mobile as well. 0.5% bupivacaine with epinephrine was infiltrated directly over this region and then a 22 gauge needle was used to attempt aspirating this area. Was unable to aspirate any fluid. This felt to be too small to easily isolate and excise especially with how deep it was. A [employer] anoscope was inserted into the anorectal canal and the mucosa was carefully inspected. There appeared be a small amount of bleeding from the posterior midline anal skin but this was likely just due to scope irritation. No other internal abnormalities were noted. No attempt at incision and drainage was made due to no other significant perianal findings. The anoscope was removed. Xeroform gauze was placed into the anal canal followed by fluffed gauze and mesh underwear. The patient was then awakened from anesthesia and transferred to recovery. Estimated Blood Loss 1 Complications No immediate complications Condition Stable Disposition Same day [facility] Billing Surgery - Charge Forward: Surgery Billing
[2025-02-15 15:45] VITALS: BP 117/73; PULSE 81; RESP 20
== END 2025-02-15 15:55 | disposition home or self-care (01) ==
PROVIDERS: PCP Nurse Practitioner Family; Visit Provider Surgery
PROC: (CPT 46040; principal; 2025-02-15 14:30)
DX: K61.1 Rectal abscess (principal); G89.18 Other acute postprocedural pain; E78.00 Pure hypercholesterolemia, unspecified; G47.33 Obstructive sleep apnea (adult) (pediatric); F41.8 Other specified anxiety disorders; I49.9 Cardiac arrhythmia, unspecified; G47.10 Hypersomnia, unspecified; R06.83 Snoring; E66.9 Obesity, unspecified; Z68.35 Body mass index [BMI] 35.0-35.9, adult; Z99.89 Dependence on other enabling machines and devices; Z98.890 Other specified postprocedural states; Z90.49 Acquired absence of other specified parts of digestive tract; Z80.41 Family history of malignant neoplasm of ovary; Z80.3 Family history of malignant neoplasm of breast
CPT/HCPCS: 46040; J0690; A9270; J1885; J2003; J2250; J2704; J3010; J7120